=== PATIENT | female | born 1985 | race Two or more races ===

== ENCOUNTER 2018-01-04 14:53 | Outpatient (CLI) | payer MEDICAID, SELFPAY ==
[2018-01-04 16:12] LABS: Abs Immature Grans 0.01 k/cumm (0.0-0.09); Absolute Basophil Count 0.04 k/cumm (0.0-0.2); Absolute Eosinophil Count 0.16 k/cumm (0.0-0.7); Absolute Lymphocyte Count 2.17 k/cumm (1.2-3.4); Absolute Monocyte Count 0.38 k/cumm (0.11-0.7); Basophils % 0.5; Eosinophils % 1.8; HCT 33.6 % (36.0-46.0); HGB 11.7 g/dL (12.0-15.5); Immature Grans % 0.1; Lymphocytes % 24.8; Mean Corp. HGB Concentration 34.8 g/dL (32.0-36.0); Mean Corpuscular Hemoglobin 31.2 pg (27.0-33.0); Mean Corpuscular Volume 89.6 fL (80-95); Mean Platelet Volume 9.6 fL (8.0-11.0); Monocytes % 4.3; Neutrophils % 68.5; Platelet Count 327 x1000/uL (130-400); RBC 3.75 m/cumm (4.00-5.20); White Blood Cell Count 8.76 k/cumm (4.4-10.8)
[2018-01-04 17:20] LABS: *AMPHETAMINES SCREEN URINE Negative (Negative); *BARBITURATES SCREEN URINE Negative (Negative); *BENZODIAZEPINES SCREEN URINE Negative (Negative); Cannabinoids THC POSITIVE (Negative); Cocaine Screen,Urine Negative (Negative); METHADONE URINE SCREEN Negative (Negative); OPIATES URINE SCREEN Negative (Negative)
[2018-01-04 17:22] LABS: Tricyclic Antidepressants Negative (Negative)
[2018-01-05 09:34] LABS: Hepatitis C Ab w Rflx HCV PCR Negative (NEGAT)
[2018-01-05 10:06] LABS: Hepatitis B Surface Ag Negative (NEGAT)
[2018-01-05 10:55] LABS: Syphilis Serology (RPR) Negative (Negative)
[2018-01-05 11:10] LABS: HIV-1/2 Ag & Ab Screen Negative (NEGAT)
[2018-01-05 12:51] LABS: Varicella IgG Antibody Positive
[2018-01-05 13:13] LABS: Rubella IgG Ab (UVM) Positive
[2018-01-08 15:29] LABS: Chlamydia Result Negative; GC Result Negative; Specimen Description CERVIX
[2018-01-09 08:25] LABS: Buprenorphine Negative; Norbuprenorphine Negative
== END 2018-01-04 15:13 ==
PROVIDERS: Visit Provider Advanced Practice Midwife
DX: Z34.91 Encounter for supervision of normal pregnancy, unspecified, first trimester (principal); Z11.3 Encounter for screening for infections with a predominantly sexual mode of transmission; Z11.4 Encounter for screening for human immunodeficiency virus [HIV]; Z11.59 Encounter for screening for other viral diseases; Z01.84 Encounter for antibody response examination
CPT/HCPCS: 80055; 80307; 86787; 86803; 86850; 86900; 86901; 87340; 87389; 87491; 87591; 84443; 86592; 86762; 87086

== ENCOUNTER 2018-03-01 10:14 | Outpatient (CLI) | payer MEDICAID, SELFPAY ==
[2018-03-05 11:38] LABS: AFP 43.6 ng/mL; Calculated age at EDD 34 years; Cigarette smoking status non-smoker; GA used in risk estimate Scan estimate; IVF Pregnancy No; Initial or repeat testing Initial testing; Insulin dependent diabetes No; Maternal Weight 112 lbs; Number of Fetuses 1; Physician Phone Number 802-748-7300; Prev Pregnancy w/NTD No; RECOMMENDED FOLLOW UP None.; Results Summary Normal risk
== END 2018-03-01 10:34 ==
PROVIDERS: Visit Provider Advanced Practice Midwife
DX: Z34.91 Encounter for supervision of normal pregnancy, unspecified, first trimester (principal); Z36.89 Encounter for other specified antenatal screening
CPT/HCPCS: 36415; 82105

== ENCOUNTER 2018-03-14 01:05 | Outpatient (CLI) | payer MEDICAID, SELFPAY ==
--- NOTE | 2018-03-14 08:59 | DI.US_ITS ---
SYMPTOMS/DIAGNOSIS: 18 WK ANATOMY SURVEY, Z34.90 OB ULTRASOUND: Please see the accompanying OB ultrasound worksheet for complete details of this examination. Many abnormalities cannot be diagnosed. A normal exam does not exclude a congenital anomaly. Radiology No. [id number] LMP: 11/04/17 Exam Date: 03/14/18 [facility] wks days on EDC ([facility]) Confirmed: HISTORY: survey PREDICTED GESTATIONAL AGE NUMBER 18+4 weeks with a range of 17+4 weeks to 19+4 weeks. 1 Determined by 1STUS LMP X HISTORY Info. pertaining to fetus # PLACENTA PRESENTATION Grade 0-I Cephalic___ Anterior X Posterior___ Breech____ Right Left Transverse(head right___ Fundal___Low-lying___Previa___ Transverse(head left___ Varying X BIOMETRY AMNIOTIC FLUID BPD: 44 mm 19+2 weeks Normal HC: 160 mm 18+6 weeks AC: 131 mm 18+4 weeks FL: 27 mm 18+3 weeks AMNIOTIC FLUID INDEX >26 WK CRL: mm weeks Cisterna Magna: 4 mm CI: 0.85 RUQ: LUQ Cerebellum: 1.7 cm EFW: 246 grams Percentile RLQ: LLQ Total: cms Composite AGE= 18+6 wks EDC by US 08/08/18 BIOPHYSICAL PROFILE ANATOMY IDENTIFIED SCORE 0/2 Heart: 4-Chamber X Rate: 150 BPM LVOT: X RVOT: X Amniotic Fluid(>2cms)____ Stomach: X Kidneys: X Respirations (>30 secs) Bladder: X Post. Fossa: X Body Flex/Extension 3 vessel cord: X Ventricles: X cord insertion: X Lips: X Extremity Flex/Extension spinal morphology: X Nose: X Total Score= Palate: X NS=not seen
== END 2018-03-14 01:25 ==
PROVIDERS: Visit Provider Advanced Practice Midwife
DX: Z34.92 Encounter for supervision of normal pregnancy, unspecified, second trimester (principal)
CPT/HCPCS: 76805

== ENCOUNTER 2018-05-24 02:13 | Outpatient (CLI) | payer MEDICAID, SELFPAY ==
[2018-05-24 11:55] LABS: HCT 32.5 % (36.0-46.0); HGB 11.3 g/dL (12.0-15.5); Mean Corp. HGB Concentration 34.8 g/dL (32.0-36.0); Mean Corpuscular Volume 92.1 fL (80-95); Mean Platelet Volume 9.3 fL (8.0-11.0); Platelet Count 285 x1000/uL (130-400); RBC 3.53 m/cumm (4.00-5.20); RBC Distribution Width 12.6 % (11.7-14.6); White Blood Cell Count 12.29 k/cumm (4.4-10.8)
[2018-05-24 12:10] LABS: Glucose,1 Hr (Glucola) 119 mg/dL (80-140)
== END 2018-05-24 02:33 ==
PROVIDERS: Advanced Practice Midwife; Visit Provider Advanced Practice Midwife
DX: Z34.93 Encounter for supervision of normal pregnancy, unspecified, third trimester (principal)
CPT/HCPCS: 36415; 82950; 85027

== ENCOUNTER 2018-07-13 12:43 | Outpatient (REF) | payer MEDICAID, SELFPAY | END 2018-07-13 13:03 | LOC: LBN 12:43 | PROVIDERS: Visit Provider Advanced Practice Midwife | DX: Z34.93 Encounter for supervision of normal pregnancy, unspecified, third trimester (principal); Z36.85 Encounter for antenatal screening for Streptococcus B | CPT/HCPCS: 87081 ==

== ENCOUNTER 2018-08-03 11:58 | Outpatient (CLI) | payer MEDICAID, SELFPAY | END 2018-08-03 12:18 | PROVIDERS: PCP Internal Medicine; Visit Provider Advanced Practice Midwife | DX: O36.8130 Decreased fetal movements, third trimester, not applicable or unspecified (principal); Z3A.36 36 weeks gestation of pregnancy | CPT/HCPCS: 59025 ==

== ENCOUNTER 2018-08-10 07:45 | Inpatient (IN) | payer MEDICAID, SELFPAY ==
[2018-08-10] MEDS: Oxytocin 10 UNITS/ML VIAL IM (11:20)
[2018-08-10] MEDS: Acetaminophen 325 MG TAB 650 MG PO (15:26)
== END 2018-08-12 10:00 | disposition home or self-care (01) | DRG 807 ==
PROVIDERS: Admitting Provider Advanced Practice Midwife; PCP Internal Medicine; Visit Provider Advanced Practice Midwife
DX: O99.824 Streptococcus B carrier state complicating childbirth (principal); Z37.0 Single live birth; O76 Abnormality in fetal heart rate and rhythm complicating labor and delivery; O99.02 Anemia complicating childbirth; Z3A.39 39 weeks gestation of pregnancy; D64.9 Anemia, unspecified
CPT/HCPCS: J2590

== ENCOUNTER 2018-09-21 17:51 | Outpatient (REF) | payer MEDICAID, SELFPAY ==
--- NOTE | 2018-09-21 11:10 | PAPFT_PTH ---
PATIENT: MAGDY CONNOLLY LOC: [facility] U#:[id number] AGE/SX: 33/F ROOM: RE09/21/[address]: Latisha Cortés CNM : 1985 BED: DIS: 09/21/2018 SPEC #: [id number] RECD: 09/24/18 11:47 STATUS: ADELA REAnne #: [id number] JOSELO: 09/21/18 11:[address]: Latisha Cortés [facility]PT[facility] Cytology RECD BY: Madisyn Fall ENTERED: 09/24/18 11:48 SP TYPE: PAPFT OTHR DR: Lelo Jama Tissues: 1 - CX/ENDOCX FOR PAP SMEARS Procedures: PAP THIN PREP/[facility] Screening HPV DNA PROBE Comments: [id number]
== END 2018-09-21 18:11 ==
LOC: LBN 17:51
PROVIDERS: PCP Internal Medicine; Visit Provider Advanced Practice Midwife
DX: Z12.4 Encounter for screening for malignant neoplasm of cervix (principal); Z11.51 Encounter for screening for human papillomavirus (HPV)
CPT/HCPCS: 88142; 87624